=== PATIENT | male | born 2000 | race Caucasian/White ===

== ENCOUNTER 2022-03-07 19:33 | Emergency (ER) | payer BC ==
[~2022-03-07 19:33] MED LIST: BENTYL 20MG TAB20 MG PO; PROTONIX40 MG PO; ZOFRAN ODT 4 MG4 MG SL
[2022-03-07 20:08] LABS: HEMOGLOBIN 14.4 gm/dl (14.0-17.5); RED BLOOD COUNT 4.73 M/UL (4.20-5.50); WHITE BLOOD COUNT 8.2 K/UL (4.5-11.0)
[2022-03-07 20:35] LABS: BUN/CREATININE RATIO 8 (0-10)
[2022-03-07] MEDS ORDERED: AMOXICILLIN500 M1 PO (22:58)
== END 2022-03-07 23:12 | disposition home or self-care (01) ==
LOC: ER1 19:33
PROVIDERS: Student in an Organized Health Care Education/Training Program
DX: U07.1 COVID-19 (principal); J02.0 Streptococcal pharyngitis; F17.290 Nicotine dependence, other tobacco product, uncomplicated
CPT/HCPCS: 0240U; 80053; 81001; 83690; 85025; 86403; 87081; 87880; 99284; Q9967